=== PATIENT | female | born 1955 | race African-American/Black ===

== ENCOUNTER 2019-05-07 05:16 | Inpatient (IN) | payer MEDICAID ==
[~2019-05-07] VITALS: Ht 157.5 cm; Wt 87.1 kg
[2019-05-07] VITALS (11 sets, daily range): BP systolic 92–127; BP diastolic 60–78
--- NOTE | 2019-05-07 05:25 | NUR ---
MS RN OPENING NOTES: RECEIVED PT ON ROOM AIR AND IS TOLERATING WELL. PT ARRIVING FROM HOME WITH 2 FAMILY MEMBERS AT BEDSIDE. IV TO BE STARTED SOON. PT STATES SHE HAS BEEN NPO SINCE MIDNIGHT. NO S/S OF DISTRESS. PT TO SIGN 3 CONSENTS FOR TKA (RIGHT). BED KEPT IN LOW, LOCKED POSITION, AND SIDE RAILS X 2UP. WILL CONTINUE TO MONITOR PT.
[2019-05-07] MEDS ORDERED: LEVO25TA7 PO (06:15)
--- NOTE | 2019-05-07 06:34 | NUR ---
MS RN NOTES: PT WENT DOWN TO OR FOR SX.
--- NOTE | 2019-05-07 06:57 | NUR ---
MS RN CLOSING NOTES: PT STILL IN OR FOR SX. ENDORSED TO AM NURSE FOR FATMATA.
[2019-05-07] MEDS ORDERED: BACITRACIN 50000 UNITS/VIAL ONE (07:20)
--- NOTE | 2019-05-07 07:20 | NUR ---
MS/RN OPENING NOTE PATIENT IS IN OR FOR SURGERY. RECEVED REPORT FROM WRECKING CRANE ENGINE OPERATOR.
[2019-05-07] MEDS ORDERED: MIDAZOLAM HCL 2 MG/2ML VIAL ONE (07:33)
[2019-05-07] MEDS ORDERED: MORPHINE SULFATE/PF 10 MG/10ML (1MG/ML) AMPUL ONE (07:34)
[2019-05-07] MEDS ORDERED: FENTANYL PF 100MCG/2ML AMPUL ONE (07:34)
[2019-05-07] MEDS ORDERED: SCOPOLAMINE HBR 1 EA PATCH.TD72 TD ONE (07:35)
[2019-05-07] MEDS ORDERED: BUPIVACAINE 0.25% 75 MG/30 ML VIAL ONE (07:35)
[2019-05-07] MEDS ORDERED: ACETAMINOPHEN 325 MG TABLET ONE (07:38)
[2019-05-07] MEDS ORDERED: CELECOXIB 100 MG CAPSULE ONE ×2 (07:38→07:40)
[2019-05-07] MEDS ORDERED: oxyCODONE HCL SR 10MG TAB.SR.12H PO ONE (07:38)
[2019-05-07] MEDS ORDERED: TRANEXAMIC ACID 3,000 MG in SODIUM CHLORIDE IRRIG SOLUTION 70 ML IR ONE (09:00)
--- NOTE | 2019-05-07 09:00 | NUR ---
MS/RN NOTE TRANEXAMIC ACID DUE AT 0900 NOT ADMINISTERED. THE PATIENT IS IN OR.
[2019-05-07] MEDS ORDERED: ONDANSETRON HCL/PF 4 MG/2 ML VIAL ONE (09:51)
[2019-05-07] MEDS ORDERED: HYDROMORPHONE 1 MG/1 ML DISP.SYRIN IV PRN ×2 (10:00→11:30)
[2019-05-07] MEDS ORDERED: SENOKOT 8.6 MG TABLET PO PRN (10:00)
[2019-05-07] MEDS ORDERED: COLACE 250 MG CAPSULE PO PRN (10:00)
[2019-05-07] MEDS ORDERED: DULCOLAX 10 MG/SUPP.RECT RC PRN (10:00)
[2019-05-07] MEDS ORDERED: TYLENOL 650 MG TABLET PO PRN (10:00)
[2019-05-07] MEDS ORDERED: ZOFRAN 4mg/2ML IV PRN (10:00)
--- NOTE | 2019-05-07 10:03 | NUR ---
MS/RN NOTE THE PATIENT IS RECEIVED FROM OR. THE PATIENT IS IN BED. ALERT AND ORIENTED X4. RECEVING OXYGEN AT 2L/MIN VIA NASAL CANNULA AND SATURATION IS AT 99%. DENIES PAIN AT THIS TIME. RIGHT KNEE WITH A IMMOBILIZER. PEDAL PULSES PRESENT. NO APPARENT S/S POOR CIRCULATION NOTED. CPM SLEEVE PLACED ON LEFT LEG. NO SWELLING NOTED. SPIROMETER PROVIDED AND INSTURCTED HOW TO USE. THE PTIENT VERBALIZED UNDERSTANDING. RAC G 20 PATENT AND SALINE LOCKED. BED LOW AND LOCKED. SIDE RAILS UP X3. HOB ELEVATED. CALL LIGHT WITHIN REACH. WILL CONTINUE TO MONITOR.
[2019-05-07] MEDS: IV LR 1000 ML 1,000 ML IV PRN ×2 (10:54→17:37)
[2019-05-07] MEDS ORDERED: diphenhydrAMINE HCL 25 MG CAPSULE PO PRN ×2 (11:30→16:30)
[2019-05-07] MEDS ORDERED: NALOXONE HCL 0.4 MG/ML AMPUL IV PRN ×2 (11:30)
[2019-05-07] MEDS ORDERED: oxyCODONE IR immediate release 5 MG PO PRN (16:30)
[2019-05-07] MEDS ORDERED: ONDANSETRON HCL/PF 4 MG/2 ML VIAL IV PRN ×2 (16:30)
[2019-05-07] MEDS ORDERED: MAG HYDROX/AL HYDROX/SIMETH 30 ML UDC PO PRN (16:30)
[2019-05-07] MEDS: ANCEF 1 G in IV D5W 50 ML IV SCH (17:10)
[2019-05-07] MEDS: DOCUSATE SODIUM 100 MG CAPSULE PO SCH (17:27)
--- NOTE | 2019-05-07 18:22 | NUR ---
MS/RN CLOSING NOTE THE PATIENT IS ALERT AND ORIENTED X4. IN ROOM AIR AND SATURATION IS AT 98%. DENIES SOB. RESPIRATION REGULAR AND UNLABORED. DENIES PAIN. THE PATIENT IN NO APPARENT DISTRESS. PEDAL PULSES PRESENT. NO S/S POOR CIRCULATION NOTED. RAC G 20 PATENT AND IV ANTIBIOTIC INFUSING PER ORDER AND NO S/S INFILTRATION NOTED. JJ CATH PRESENT AND DRAINING CLEAR AND YELLOW COLOR URINE WITH NO FOUL ODOR. BED LOW AND LOCKED. SIDE RAILS UP X3. CALL LIGHT WITHIN REACH. WILL ENDORSE TO HEATSET WINDER OPERATOR.
--- NOTE | 2019-05-07 19:30 | NUR ---
RN NOTES RECEIVED PT. AWAKE ON BED, A/OX4, S/P RIGHT TOTAL KNEE ARTHROPLASTY, DRESSING INTACT, F/C DRAINING CLEAR YELLOW URINE, CALL LIGHT WITHIN REACH, SIDERAILSUPX2, CONTINUE TO MONITOR
[2019-05-07] MEDS: FAMOTIDINE (20 MG) 20 MG TABLET PO SCH (21:37)
[2019-05-07] MEDS ORDERED: AMBIEN 5 MG TABLET PO PRN (22:00)
[2019-05-08] VITALS: BP 92/54
[2019-05-08] MEDS: ANCEF 1 G in IV D5W 50 ML IV SCH (00:32)
[2019-05-08] MEDS: IV LR 1000 ML 1,000 ML IV PRN (01:03)
[2019-05-08 04:00] VITALS: BP 106/50
[2019-05-08] MEDS: oxyCODONE IR immediate release 5 MG PO PRN (05:41)
--- NOTE | 2019-05-08 05:41 | NUR ---
RN NOTES PT. COMPLAINED OF RIGHT KNEE PAIN PAIN LEVEL OF 7/10- OXY IR 10MG PO GIVEN ORDERED, V/S STABLE
[2019-05-08 06:32] LABS: HEMOGLOBIN 11.6 g/dL (11.5-14.8)
--- NOTE | 2019-05-08 06:49 | NUR ---
RN NOTES AWAKE, F/C DRAINING CLEAR YELLOW URINE, MORNING CARE RENDERED, CALL LIGHT WITHINR EACH, SIDERAILSUPX2, PT. NEEDS ATTENDED
--- NOTE | 2019-05-08 07:16 | NUR ---
RN OPENING NOTES RECEIVED PATIENT AWAKE ON BED, A/OX4. NOT IN ANY FORM OF DISTRESS, NO SOB. DENIED PAIN OR DISCOMFORT AT THIS TIME, GIVEN PAIN MANAGEMENT PRIOR TO SHIFT BY NIGHT RN. S/P RIGHT TOTAL KNEE ARTHROPLASTY, DRESSING C/D/I. F/C DRAINING CLEAR YELLOW URINE. KEPT PATIENT SAFE AND COMFORTABLE. BED IN LOW/LOCKED POSITION. CALL LIGHT WITHIN REACH, SIDERAILS UPX2, CONTINUE TO MONITOR ACCORDINGLY
[2019-05-08 08:00] VITALS: BP 96/51
[2019-05-08] MEDS: ASPIRIN 325 MG TABLET PO SCH (08:13)
[2019-05-08] MEDS: DOCUSATE SODIUM 100 MG CAPSULE PO SCH ×2 (08:14→17:03)
[2019-05-08] MEDS: FAMOTIDINE (20 MG) 20 MG TABLET PO SCH ×2 (08:14→20:50)
--- NOTE | 2019-05-08 08:19 | NUR ---
RN NOTES LEVOTHYROXINE NON ADMIN. PER PATIENT, SHE ALREADY TOOK IT THIS MORNING. EXPLAINED POLICY AND PROCEDURE. PATIENT AGREED TO KEEP MEDS IN THE PHARMACY. SEND HER PILL BOTTLE TO PHARMACY.
[2019-05-08] MEDS ORDERED: LEVOTHYROXINE SODIUM 88 MCG TABLET PO SCH (09:00)
--- NOTE | 2019-05-08 10:23 | NUR ---
RN NOTES SEEN BY PHYSICAL THERAPY
[2019-05-08] MEDS ORDERED: HYDROMORPHONE 1 MG/1 ML DISP.SYRIN IV PRN (11:30)
[2019-05-08] MEDS: HYDROMORPHONE 1 MG/1 ML DISP.SYRIN SQ PRN ×2 (13:14→17:13)
[2019-05-08 16:05] VITALS: BP 117/52
--- NOTE | 2019-05-08 17:30 | NUR ---
RN NOTES DC JJ, NO COMPLICATIONS. PRIOR TO REMOVAL OF JJ, PRIMARY NURSE ASKED PERMISSION IF SHE'S COMFORTABLE WITH MALE NURSE TO REMOVED THE JJ. PATIENT STATED "YEAH, IM OK WITH YOU REMOVING IT.".
--- NOTE | 2019-05-08 19:05 | NUR ---
RN NOTES BEDSIDE COMMODE PROVIDED. INSTRUCTED TO CALL FOR HELP IF NEED TO USE IT. BED ALARM ON.
--- NOTE | 2019-05-08 19:11 | NUR ---
RN CLOSING NOTES PATIENT IN STABLE CONDITION. ALL NEEDS ATTENDED AND PROVIDED. ALL DUE MEDICATIONS GIVEN ORDERED. ASSISTED WITH ADLS. KEPT PATIENT SAFE AND COMFORTABLE. BED IN LOW/LOCKED POSIITON. SIDERAILS UP X2, CALL LIGHT IN REACH. ENDORSED TO NIGHT RN FOR AFTMATA.
--- NOTE | 2019-05-08 19:30 | NUR ---
RN NOTES RECEIVED PT. AWAKE ON BED, A/OX4, DRESSING ON THE RIGHT KNEE DRY AND INTACT , DENIES PAIN, NO SOB, CALL LIGHT WITHIN REACH, SIDERAILSUPX2, CONTINUE TO MONITOR
[2019-05-08 20:00] VITALS: BP 126/58
--- NOTE | 2019-05-09 06:50 | NUR ---
RN NOTES AWAKE, DENIES PAIN, NO SOB, MORNING CARE RENDERED, CALL LIGHT WITHIN REACH, SIDERAILSUPX2, PT. NEEDS ATTENDED
[2019-05-09] MEDS: oxyCODONE IR immediate release 5 MG PO PRN ×2 (07:15→07:17)
[2019-05-09 07:22] LABS: BASOPHILS % (AUTO) 0.4 % (0.0-2.0); HEMATOCRIT 36 % (33-45); HEMOGLOBIN 12.1 g/dL (11.5-14.8); LYMPHOCYTES # (AUTO) 1.4 /CMM (0.8-4.8); LYMPHOCYTES % (AUTO) 12.3 % (20.0-44.0); MEAN CORPUSCULAR HGB CONC 34 g/dl (31.0-36.0); MEAN CORPUSCULAR VOLUME 88 fL (82-100); MONOCYTES % (AUTO) 8.7 % (2.0-12.0); NEUTROPHILS # (AUTO) 8.8 /CMM (1.8-8.9); NEUTROPHILS % (AUTO) 78.6 % (43.0-81.0); PLATELET COUNT (AUTO) 195 /CMM (150-450); RED BLOOD CELL COUNT(AUTO) 4.12 MIL/uL (4.0-5.2); WHITE BLOOD COUNT (AUTO) 11.2 K/uL (4.3-11.0)
[2019-05-09 07:26] LABS: CALCIUM, SERUM 8.5 mg/dL (8.5-10.1); CREATININE 0.6 mg/dL (0.6-1.3); POTASSIUM 3.4 mmol/L (3.5-5.1)
--- NOTE | 2019-05-09 07:30 | NUR ---
RN OPENING NOTES RECEIVED PATIENT IN BED RESTING. NOT IN ANY FORM OF DISTRESS. NO SOB. KNEE PAIN 05/14 ACHING, WILL ADMINISTER PAIN MEDS ORDERED. IV ACCESS INTACT AND PATENT. S/P RIGHT KNEE ARTHROPLASTY ON 05/07, DRESSING C/D/I. KEPT PATIENT SAFE AND COMFROTABLE. BED IN LOW/LOCKED POSTIION, SIDERAILS UPX2, CALL LIGHT IN REACH. WILL CONTNIUE TO MONIOTR ACCORDINGLY
[2019-05-09 08:00] VITALS: BP 141/75
[2019-05-09] MEDS: FAMOTIDINE (20 MG) 20 MG TABLET PO SCH (08:43)
[2019-05-09] MEDS: ASPIRIN 325 MG TABLET PO SCH (08:43)
[2019-05-09] MEDS ORDERED: LEVOTHYROXINE SODIUM 25 MCG TABLET PO SCH (08:47)
[2019-05-09] MEDS: DOCUSATE SODIUM 100 MG CAPSULE PO SCH (08:47)
[2019-05-09] MEDS ORDERED: POTASSIUM CHLORIDE 20 MEQ TAB.PRT.SR PO SCH (13:30)
--- NOTE | 2019-05-09 14:45 | NUR ---
RN NOTES DRESSING CHANGED ON RIGHT KNEE. NOTED INCISION TIP INTACT, NO REDNESS, NO BLEEDING, PHOTOS TAKEN AND PLACED IN CHART. APPLIED NON ADHESIVE GAUZE, COVERED WITH GAUZE, KERLIX, AND WRAP WITH KIMBERLYN BANDAGE. JUST REPEATED WHAT WAS INITIALLY DONE BY .
--- NOTE | 2019-05-09 15:07 | NUR ---
DISCHARGED PATIENT IN STABLE CONDITION PICKED UP BY DAUGHTER, ACCOMPANIED BY RUBEN JAMA AT THE [facility]. DISCHARGE INSTRUCTIONS GIVEN, VERBALIZED UNDERSTANDING. PAPERWORK GIVEN. ALL BELONGINGS RETURNED, FORMS SIGNED. IV ACCESS REMOVED, NO COMPLICATIONS. NAME BAND REMOVED. FRONT WHEEL WALKER PROVIDED. INFORMED PATIENT THAT HOMEHEALTH WILL CONTACT THEM. HOMEHEALTH CONTACT INFO GIVEN ALSO TO PATIENT.
--- NOTE | 2019-05-09 15:15 | NUR ---
RN NOTES PATIENT LEFT HER MEDICATIONS (SYNTHROID). CALLED PATIENT. DAUGHTER WILL PICK IT UP TOMORROW AT THE NURSING STATION. NADINE CHARGE NURSE AWARE.
== END 2019-05-09 14:30 | disposition home health service (06) | DRG 302 ==
LOC: DS 05:16 → MED 05:17 → TELE 14:35 → MED 05-08 17:41
PROVIDERS: ADMIT Student in an Organized Health Care Education/Training Program; ATTEND Nurse Practitioner Acute Care
PROC: 0SRC0J9 Replacement of Right Knee Joint with Synthetic Substitute, Cemented, Open Approach (ICD-10-PCS; principal; 2019-05-07)
DX: M17.11 Unilateral primary osteoarthritis, right knee (principal); E66.01 Morbid (severe) obesity due to excess calories; E03.9 Hypothyroidism, unspecified; Z68.35 Body mass index [BMI] 35.0-35.9, adult
CPT/HCPCS: 36415; 80048-TC; 85025-TC; 85027-TC; 87081-TC; 88305-TC; 88311-TC; 97110-TC; 97116-TC; 97530-TC; 97760-TC; A4217; A6253; G0378; J0690; J1100; J1170; J2250; J2274; J2405; J2704; J3010; J3490; J7060; J7120; L1830